=== PATIENT | male | born 1995 ===

== ENCOUNTER 2018-09-19 22:35 | Emergency (ER) | payer SELFPAY ==
[2018-09-19 22:43] VITALS: RESP 20
--- NOTE | 2018-09-19 22:58 | C.PDOC ---
History Of Present Illness 23 y/o male presents to the ED complaining of mid-sternal chest pain that began a few days ago, worsened today. Pain is described as digitally and positionally reproducible, and localized to the bilateral parasternal borders. He denies recent fall or blunt trauma. 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 Otherwise patient denies any SOB, SIERRA, dizziness, nausea, vomiting, diaphoresis, fever, cough, or other URI symptoms. Time Seen by Provider: 09/19/18 22:51 Chief Complaint (Nursing): Chest Pain History Per: Patient History/Exam Limitations: no limitations Onset/Duration Of Symptoms: Days Current Symptoms Are (Timing): Worse Exacerbating Factors: Movement Alleviating Factors: None Past Medical History Reviewed: Historical Data, Nursing Documentation, Vital Signs Vital Signs: Last Vital Signs Temp 98.6 F 09/19/18 22:40 Pulse 87 09/19/18 22:40 Resp 20 09/19/18 22:40 BP 128/79 09/19/18 22:40 Pulse Ox 98 09/19/18 22:40 - Medical History PMH: No Chronic Diseases Surgical History: No Surg Hx Family History: States: No Known Family Hx - Social History Hx Tobacco Use: No Hx Alcohol Use: Yes Hx Substance Use: Yes (marijuana) Review Of Systems Except As Marked, All Systems Reviewed And Found Negative. Constitutional: Negative for: Fever, Chills, Sweats Eyes: Negative for: Vision Change Cardiovascular: Positive for: Chest Pain. Negative for: Palpitations, Light Headedness Respiratory: Negative for: Cough, Shortness of Breath Gastrointestinal: Negative for: Nausea, Vomiting, Abdominal Pain Neurological: Negative for: Weakness, Dizziness Physical Exam - Physical Exam Appears: Non-toxic, No Acute Distress Skin: Normal Color, Warm, Dry Head: Atraumatic, Normacephalic Eye(s): bilateral: Normal Inspection, PERRL, EOMI Oral Mucosa: Moist Neck: Normal ROM Chest: No Deformity, Tenderness (digitally reproducible pain to bilateral parasternal borders, upper aspect), No Ecchymosis, Other (No rash or skin changes) Cardiovascular: Rhythm Regular, No Murmur Respiratory: Normal Breath Sounds, No Accessory Muscle Use, No Rales, No Rhonchi, No Wheezing Gastrointestinal/Abdominal: Bowel Sounds (active), Soft, No Tenderness, No Distention Back: No CVA Tenderness Extremity: Normal ROM, No Calf Tenderness, No Swelling Pulses: Left Dorsalis Pedis: Normal, Right Dorsalis Pedis: Normal Neurological/Psych: Oriented x3, Normal Speech Gait: Steady ED Course And Treatment ECG: Interpreted By Me ECG Rhythm: Sinus Rhythm ECG Interpretation: Normal Rate From EC O2 Sat by Pulse Oximetry: 98 (RA) Pulse Ox Interpretation: Normal Medical Decision Making Medical Decision Making: Initial Plan: * EKG Final Impression: digitally and positionally reproducable parasternal chest wall discomfort normal ekg clear lungs, normal heart sounds costochondritis motrin/ice given Disposition Doctor Will See Patient In The: Office Counseled Patient/Family Regarding: Studies Performed, Diagnosis - Disposition Referrals: [facility] [Outside] [facility] [Outside] [facility] [Outside] [facility] [Outside] Disposition: HOME/ ROUTINE Disposition Time: 22:58 Condition: GOOD Additional Instructions: ice packs to sternal area 1/2 hour per hour, nothing hot Motrin/Advil/ibuprofen 400-600 mg every 6 hours as needed for pain no hot showers for 3 days no heavy lifting for 1 week normal work duties. Instructions: Costochondritis Forms: [facility] ([place]ian) - Clinical Impression Clinical Impression: Chest wall discomfort - Scribe Statement The provider has reviewed the documentation as recorded by the Scribe (Shanelle Baeza) Provider Attestation: All medical record entries made by the Scribe were at my direction and personally dictated by me. I have reviewed the chart and agree that the record accurately reflects my personal performance of the history, physical exam, medical decision making, and the department course for this patient. I have also personally directed, reviewed, and agree with the discharge instructions and disposition.
[2018-09-19 23:14] VITALS: BP 129/74; PULSE 75; TEMP 98.2
[2018-09-19 23:29] VITALS: O2SAT 98
--- NOTE | 2018-09-21 19:14 | CARD ---
APPROVED REPORT Date of service: 09/19/2018 EKG Measurement Heart [id number] <Conclusion> Normal sinus rhythm with sinus arrhythmia Normal ECG
== END 2018-09-19 23:13 | disposition home or self-care (01) ==
LOC: C.ER 22:35
DX: R07.89 Other chest pain (principal)